=== PATIENT | female | born 1990 | race Two or more races ===

== ENCOUNTER 2023-12-17 10:56 | Emergency (ER) | payer OTHER ==
[~2023-12-17] VITALS: Ht 165.1 cm; Wt 64.0 kg
[2023-12-17 11:00] VITALS: TEMP 97.7; O2SAT 96
[2023-12-17 11:40] LABS: BASOPHILS % 0.2 % (0.0-2.0); EOSINOPHILS % 0.3 % (0.0-5.0); HEMATOCRIT. 38.5 % (36.0-48.0); HEMOGLOBIN. 12.8 g/dL (12.0-16.0); LYMPHOCYTES % 13.5 % (20.0-50.0); MEAN CORPUSCULAR HEMOGLOBIN 30.7 pg (28.0-32.0); MEAN CORPUSCULAR HGB CONC 33.2 g/dL (31.0-37.0); MEAN CORPUSCULAR VOLUME 92.3 fL (81.0-99.0); MEAN PLATELET VOLUME 6.5 fl (7.4-10.4); MONOCYTES % 4.6 % (2.0-8.0); NEUTROPHILS % 81.4 % (40.0-76.0); PLATELET 443 x1000/uL (130-400); RED BLOOD CELL COUNT 4.17 mill/uL (4.2-5.4); WHITE BLOOD COUNT 9.8 x1000/uL (4.5-11.0)
[2023-12-17 11:44] LABS: POTASSIUM 4.7 mEq/L (3.5-5.1)
[2023-12-17 11:45] LABS: CALCIUM 9.6 mg/dL (8.7-10.4)
[2023-12-17 11:50] LABS: CREATININE 1.4 mg/dL (0.6-1.0)
[2023-12-17] MEDS: SODIUM CHLORIDE 0.9% 1,000 ML IV NR (12:08)
[2023-12-17 15:08] VITALS: BP 132/91; PULSE 79; RESP 17; O2SAT 99
== END 2023-12-17 15:15 | disposition home or self-care (01) ==
LOC: ER 10:56
DX: E86.0 Dehydration (principal); Z98.890 Other specified postprocedural states
CPT/HCPCS: 36415; 80048; 85025; 96360; 99283